=== PATIENT | female | born 1985 | race Caucasian/White ===

== ENCOUNTER 2020-12-31 12:14 | Emergency (ER) | payer OTHER ==
[~2020-12-31] VITALS: Ht 162.6 cm; Wt 63.5 kg
[2020-12-31] MEDS ORDERED: HYDROXYZINE HCL25 M2 PO (12:43)
[2020-12-31 13:22] VITALS: BP 119/72
== END 2020-12-31 13:23 | disposition home or self-care (01) ==
LOC: M.ERS 12:14
DX: F41.9 Anxiety disorder, unspecified (principal)